=== PATIENT | female | born 1980 | race Caucasian/White ===

== ENCOUNTER 2022-10-13 12:55 | Emergency (ER) | payer MEDICAID ==
[~2022-10-13] VITALS: Ht 165.1 cm; Wt 117.8 kg
[2022-10-13 12:56] VITALS: BP 160/86
== END 2022-10-13 13:30 | disposition left against medical advice (07) ==
LOC: M ED 12:55
DX: Z53.21 Procedure and treatment not carried out due to patient leaving prior to being seen by health care provider (principal)